=== PATIENT | male | born 1960 | race Caucasian/White ===

== ENCOUNTER 2023-05-01 12:08 | Emergency (ER) | payer OTHER, SELFPAY ==
--- NOTE | 2023-05-01 12:20 | ED.GENMED ---
History of Present Illness
<Ernestina Reza PA-C - Last Filed: 05/01/23 16:20>
General
Chief Complaint: Skin Surface Trauma
Source: patient
Exam Limitations: none
Time Seen by Provider: 05/01/23 12:15
Nursing documentation reviewed up to this point in time: agreed with
Travel History
Have you had any contact with someone who has COVID-19?: No
Do you have any symptoms of coronavirus? Fever > 100 degrees, chills, cough, shortness of breath, sore throat, loss of taste or smell, muscle aches, or headache?: No
History of Present Illness
History of Present Illness:
This is a 62-year-old male with a past medical history of hypertension, GERD hyperlipidemia presenting to the emergency department today with a laceration to his left thigh following a chain saw accident. Patient states that he was clearing brush
with the chainsaw outside in his yard to make room for a barn when he overshot where he was going to cut and he hit his leg with a chainsaw. He was wearing jeans at the time. He states that the chainsaw remained intact and he denies any foreign
body within the wound. He admits to some burning type pain at the surface of the wound but otherwise has no significant leg pain. He is able to walk without difficulty. He does take 1 aspirin daily. He denies any other injuries.
Past History
<Ernestina Reza PA-C - Last Filed: 05/01/23 16:20>
Past History
ED Past Medical History: GERD, HTN and Hypercholesterolemia
Review of Systems
<Ernestina Reza PA-C - Last Filed: 05/01/23 16:20>
Review of Systems
All Other Systems: ROS reviewed and negative except as documented in HPI and ROS
Phy Exam
<Ernestina Reza PA-C - Last Filed: 05/01/23 16:20>
Physical Exam
Physical Exam:
General: Patient appears well and is no acute distress
Skin: There is a 8 cm horizontal laceration above the left knee. No foreign body.
Cards: Regular rate
Pulm: Normal respiratory effort
Musculoskeletal: Patient has full range of motion of left lower extremity, popliteal, dorsalis pedis, posterior tibial pulses intact. Sensation intact.
Neuro: alert and oriented x3.
Course
<Ernestina Reza PA-C - Last Filed: 05/01/23 16:20>
Vital Signs
Initial and Last Documented VS:
Initial Vital Signs
Temp Pulse Resp Pulse Ox
98 F 102 16 98
05/01/23 12:12 05/01/23 12:12 05/01/23 12:12 05/01/23 12:12
Last Documented Vital Signs
Temp Pulse Resp Pulse Ox
98 F 102 16 98
05/01/23 12:12 05/01/23 12:12 05/01/23 12:12 05/01/23 12:12
<Nathan Santana DO - Last Filed: 05/01/23 12:57>
Vital Signs
Initial and Last Documented VS:
Initial Vital Signs
Temp Pulse Resp Pulse Ox
98 F 102 16 98
05/01/23 12:12 05/01/23 12:12 05/01/23 12:12 05/01/23 12:12
Last Documented Vital Signs
Temp Pulse Resp Pulse Ox
98 F 102 16 98
05/01/23 12:12 05/01/23 12:12 05/01/23 12:12 05/01/23 12:12
Procedures
<Ernestina Reza PA-C - Last Filed: 05/01/23 16:20>
Laceration Closure
Left Thigh:
Status of Wound: dirty
Size of Wound in cm: 8
Description of Wound Edges: sharp
Preparation: cleaned with saline and cleaned with Betadine
Anesthesia: 1% Lidocaine with epi
Revision/Debridement: minor revision
Wound exploration: explored to base- no FB
Type of Closure: single layer closure and interrupted sutures
Skin Closure Material: 4-0 nylon
Number of sutures: 14
<Ernestina Reza PA-C - Last Filed: 05/01/23 16:20>
MDM/Problems Addressed
Differential Diagnosis Includes:
laceration, abrasion, musculoskeletal sprain/strain
MDM/Problems Addressed:
left thigh wound
Chronic conditions affecting care: HTN and Other (hyperlipidemia)
<Ernestina Reza PA-C - Last Filed: 05/01/23 16:20>
*Pulse Oximetry
Patient hypoxic: no
*Critical Care Note
Total Time (30-74mins, 75-104mins- exclusive of procedures): Not Applicable
Data Reviewed
Review of Other/Old Records Reveals: Discharge Summary (reviewed discharge summary from 11/03/20)
Prescriptions/Medications Considered But Not Given:
n/a
Further Testing Considered But Not Given:
Considered x-ray however patient is full range of motion of left lower extremity, does not have significant pain, and denies any foreign body involvement
<Ernestina Reza PA-C - Last Filed: 05/01/23 16:20>
Patient Management
Escalation/DeEscalation of care consider admission/obs:
This is a 52-year-old male with a past medical history of hypertension, blood thinners presenting to emergency department today with a left thigh laceration following a chainsaw injury. On physical exam, there is a rounded 8 cm horizontal
laceration above the left knee. It is superficial. The wound was thoroughly irrigated with sterile saline and cleaned with Betadine. The wound was repaired with 4-0 nylon sutures, the patient tolerated the procedure well.
ED Attending Note
<Ernestina Reza PA-C - Last Filed: 05/01/23 16:20>
-
Portions of this chart may have been created with voice recognition software.� Occasional wrong word or��sound alike� substitutions may have occurred due to the inherent limitations of voice recognition software.
<Nathan Santana DO - Last Filed: 05/01/23 12:57>
ED Attending Note
ED Attending Note:
I evaluated the patient at bedside at 12:45 PM. The patient does have a relatively superficial chainsaw laceration to the anterior left thigh. Wound will be copiously irrigated and he will be placed on antibiotics.
Discharge Plan
Departure
Patient Disposition: Home (Routine Discharge)
Date of Disposition: 05/01/23
Time of Disposition: 13:23
Patient with high blood pressure during this ER visit?: No
Condition: Good
Discharge Problem:
Laceration of left leg
Instructions: Laceration Repair With Stitches (DC)
Prescriptions:
New
cephalexin 500 mg capsule
500 mg PO Q6H 7 Days Qty: 28 0RF
No Action
atorvastatin 20 MG tablet
20 mg PO DAILY
pantoprazole 40 MG tablet,delayed release (DR/EC)
40 mg PO DAILY
aspirin 81 MG tablet,chewable
81 mg PO DAILY
tamsulosin 0.4 MG capsule
0.4 mg PO DAILY
candesartan [Atacand] 32 MG tablet
32 mg PO DAILY
Referrals:
Adolfo Marrero DO [Family Provider] -
Activity Restrictions/Additional Instructions:
Please report to your family doctor to have your stitches removed in 10 to 14 days. Please keep the wound dry for 24 hours. After 24 hours, you may wash the wound with mild soap and water.
You can apply bacitracin once daily to the wound. I recommend applying nonadherent bandages to your wound while wearing pants so the sutures do not get caught on your pants, otherwise you can leave the wound uncovered.
We sent an antibiotic to your pharmacy, please take 1 pill every 6 hours for 7 days.
Please return to emergency department should you experience fevers or chills, dehiscence of the wound, purulent drainage from the wound, increasing pain, redness surrounding the wound, or other concerning signs or symptoms.
Interventions
Interventions:
*Risk Screen - Suicide Last Done: 05/01/23 13:33
*General Assessment Last Done: 05/01/23 13:33
*Neglect/Abuse Screening Last Done: 05/01/23 13:33
ED- Fall Risk Assessment Last Done: 05/01/23 13:33
*ED COVID-19 Vaccine History Last Done: 05/01/23 13:33
*Nursing Disposition Last Done: 05/01/23 13:33
ED-Skin Assessment Last Done: 05/01/23 12:52
Discharge Date and Time
Discharge Date/Time: 05/01/23 13:34
== END 2023-05-01 13:34 | disposition home or self-care (01) ==
LOC: EMR 12:08
PROVIDERS: EMERGENCY PHYSICIAN Emergency Medicine; FAMILY PHYSICIAN Family Medicine
DX: S71.112A Laceration without foreign body, left thigh, initial encounter (principal); W29.3XXA Contact with powered garden and outdoor hand tools and machinery, initial encounter; I10 Essential (primary) hypertension; E78.49 Other hyperlipidemia; Z79.82 Long term (current) use of aspirin
CPT/HCPCS: 13121; 99283; 13122